=== PATIENT | male | born 1995 | race Caucasian/White ===

== ENCOUNTER 2017-10-05 20:41 | Emergency (ER) | payer OTHER ==
[~2017-10-05] VITALS: Ht 182.9 cm; Wt 73.5 kg
[2017-10-05 20:46] VITALS: TEMP 37.2; Ht 182.9 cm; Wt 73.5 kg
[2017-10-05] MEDS ORDERED: LIDOCAINE/EPINEPH/TETRACAINE 1 EA SYR EXT STA (20:57)
--- NOTE | 2017-10-05 22:07 | DIAGNOSTIC IMAGING REPORT ---
HEAD WITHOUT CONTRAST (CT) CLINICAL HISTORY: 22 years-old Male presenting with head injury, cleated in left face/periorbital area. TECHNIQUE: Multidetector CT imaging of the head was performed without the use of intravenous contrast. IV contrast: None. A dose lowering technique was used consistent with the principles of ALARA (as low as reasonably achievable). COMPARISON: None. CT DOSE (mGy.cm): The estimated cumulative dose is 753.62. FINDINGS: Coiled Coil Inspector topogram: Unremarkable. Ventricles and sulci normal in size. Brain parenchyma normal in appearance with preserved castillo-white differentiation. No mass effect or midline shift. No hemorrhage or acute territorial infarct. No extra-axial fluid collection. Paranasal sinuses and mastoid air cells clear. Calvarium intact. Hyperdensity of the dural venous sinuses suggest dehydration. IMPRESSION: 1. No acute intracranial abnormality. Electronically signed by: Mateo Kauffman M.D. 10/05/2017 10:06 PM Dictated Date/Time: 10/05/2017 10:02 PM
--- NOTE | 2017-10-05 22:28 | DIAGNOSTIC IMAGING REPORT ---
FACIAL BONES-MXILLOFAC WITHOUT CLINICAL HISTORY: 22 years-old Male presenting with head injury, cleated in left face/periorbital area. TECHNIQUE: Multidetector CT of the face was performed without the use of intravenous contrast. IV contrast: None. A dose lowering technique was used consistent with the principles of ALARA (as low as reasonably achievable). COMPARISON: None. CT DOSE (mGy.cm): The estimated cumulative dose is 753.62 mGy.cm. FINDINGS: Germination Testing Manager topogram: Unremarkable. Left premaxillary superficial soft tissue contusion and swelling with overlying bandage. Left globe intact. No intraorbital hematoma. Minimal polypoid mucosal thickening in the left maxillary sinus. No acute osseous injury of the face. Mandible intact. Temporomandibular joints intact. Upper cervical spine intact. IMPRESSION: Superficial soft tissue contusion in the left premaxillary region. No acute osseous injury of the face. Electronically signed by: Mateo Kauffman M.D. 10/05/2017 10:27 PM Dictated Date/Time: 10/05/2017 10:24 PM
--- NOTE | 2017-10-05 22:41 | EMERGENCY ROOM VISIT NOTE ---
History First contact with patient: 20:51 Chief Complaint: LACERATION/CUT (SUT/DERMABOND) Stated Complaint: CUT ON FACE, POSSIBLE CONCUSSION Nursing Triage Summary: laceration to the left check History of Present Illness The patient is a 22 year old male who presents to the Emergency Room with complaints of a laceration to the left cheek. The patient states that he was playing flag football and was cleated in the face. He reports a laceration to the left cheek. He states there was no loss of consciousness. He denies headache, dizziness, nausea or vomiting. He denies any blurred vision or slurred speech. He rates his overall discomfort a 5/10. His tetanus is up-to- date. Review of Systems A complete 10 point review of systems was reviewed with the patient with pertinent positives and negatives as per history of present illness. All else were negative. Social History Smoking Status: Never Smoker Current/Historical Medications No Active Prescriptions or Reported Meds Physical Exam Vital Signs Date Time Temp Pulse Resp B/P (MAP) Pulse Ox O2 Delivery O2 Flow Rate FiO2 10/05/17 22:53 68 14 128/76 98 10/05/17 20:46 37.2 64 20 135/94 97 Room Air Physical Exam VITALS: Vitals are noted on the nurse's note and reviewed by myself. Vital signs stable. GENERAL: This is a 22-year-old male, in no acute distress, nondiaphoretic, well- developed well-nourished. SKIN: There is a 3 cm laceration to the left zygomatic area. There is no active bleeding. FACE: There is moderate left periorbital edema. HEAD: Normocephalic atraumatic. EARS: External auditory canals clear, tympanic membranes pearly castillo without erythema or effusion bilaterally. No hemotympanum. EYES: Pupils equal round and reactive to light and accommodation. No subconjunctival hemorrhage. Extraocular movements intact. NOSE: No deformity. MOUTH: Mucous membranes moist. NECK: Supple without nuchal rigidity. Cervical spine is nontender. HEART: Regular rate and rhythm without murmurs gallops or rubs. LUNGS: Clear to auscultation bilaterally without wheezes, rales or rhonchi. MUSCULOSKELETAL: Strength 5/5 throughout. NEURO: Patient was alert and oriented to person place and time. No focal neurological deficits. Medical Decision & Procedures ER Provider Diagnostic Interpretation: HEAD WITHOUT CONTRAST (CT) FINDINGS: Gynecological Assistant topogram: Unremarkable. Ventricles and sulci normal in size. Brain parenchyma normal in appearance with preserved castillo-white differentiation. No mass effect or midline shift. No hemorrhage or acute territorial infarct. No extra-axial fluid collection. Paranasal sinuses and mastoid air cells clear. Calvarium intact. Hyperdensity of the dural venous sinuses suggest dehydration. IMPRESSION: 1. No acute intracranial abnormality. FACIAL BONES-MXILLOFAC WITHOUT FINDINGS: Gynecological Assistant topogram: Unremarkable. Left premaxillary superficial soft tissue contusion and swelling with overlying bandage. Left globe intact. No intraorbital hematoma. Minimal polypoid mucosal thickening in the left maxillary sinus. No acute osseous injury of the face. Mandible intact. Temporomandibular joints intact. Upper cervical spine intact. IMPRESSION: Superficial soft tissue contusion in the left premaxillary region. No acute osseous injury of the face. Medications Administered Medications (Trade) Dose Ordered Sig/Efrain Route Start Time Stop Time Status Last Admin Dose Admin Tetracaine/ Epinephrine/ Lidocaine (L.e.t. Gel 4%/ 1:100/0.5%) 1 ea UD STAT EXT 10/05/17 20:57 10/05/17 20:59 DC 10/05/17 21:16 1 EA Procedure Verbal consent was obtained to perform the procedure. LET gel was applied to the wound and left in place for greater than 30 minutes. Using sterile technique the wound was cleaned with Betadine. The area was sterilely draped. Once the patient was anesthetized, the wound was copiously irrigated under pressure with sterile saline. The laceration was repaired using 7 simple interrupted 6-0 nylon sutures with the wound edges being well approximated. The patient tolerated the procedure well. Hemostasis was achieved. The area was cleaned with sterile saline and dressed with bacitracin ointment and bandage. Medical Decision Differential diagnosis includes facial bone fracture, orbital floor fracture, intracranial hemorrhage, skull fracture, concussion, among others. The patient was evaluated as above. There is a significant amount of periorbital edema and for this reason CT of the head and facial bones was ordered. These were read by radiology with no acute findings. Laceration repair was performed as noted above. Patient tolerated the procedure well. Conservative measures and suture care instructions were discussed with the patient. He verbalized understanding of my assessment and treatment plan and was discharged home in good condition. Head Trauma GCS Score: 15 Medication Reconcilliation Current Medication List: was personally reviewed by me Blood Pressure Screening Patient's blood pressure: Normal blood pressure Impression Primary Impression: Facial laceration Additional Impression: Closed head injury Departure Information Dispostion Home / Self-Care Condition GOOD Prescriptions No Active Prescriptions or Reported Meds Referrals [facility] (PCP) Patient Instructions My [facility] Additional Instructions You have received 7 sutures on your face. These sutures are NOT dissolvable and WILL need to be removed by a health care provider in 5-7 days. You can return to the Emergency Department or contact your Primary Care Provider to have the sutures removed. Proper wound care is essential for adequate wound healing and infection prevention. You can shower and clean the wound with soap and water. Do not scour over the wound, pat dry with a towel. Do not submerse the wound (i.e. bathe or dish wash) until the sutures have been removed. You can use an antibiotic ointment with a dressing over the wound for the next 3-4 days. After this time you may leave the wound dry and open to the air. If crust develops over the wound you can use a Q-tip to apply a 1:1 peroxide:water solution to clean the wound. Look for signs of infection of the wound including: increased pain, swelling, foul discharge, streaking, or increased temperature. If any of these are noticed you should return to the Emergency Department for further assessment and treatment. As with any laceration you may have received nerve damage to the surrounding tissues. This damage may or may not be permanent. You should keep the area covered with sunscreen for the first 6 months to 1 year when at risk for exposure to help minimize scarring. You can also use scar reducing creams or Vitamin E oil to help minimize scarring. For pain control, you can use the following [id number] medicines (if >12 yo): - Regular strength (325mg/tab) Tylenol (acetaminophen) 2 tabs every 4-6 hours as needed. Do not exceed 12 tablets in a 24 hour period. Avoid taking more than 4 grams (4000 mg) of Tylenol per day. This includes any other sources of acetaminophen you may take on a regular basis. - Regular strength (200 mg/tab) Advil (ibuprofen) 1-2 tabs every 4-6 hours as needed. Do not exceed a dose of 3200 mg per day. Return to the emergency department if your symptoms worsen despite treatment course outlined above. Problem Qualifiers Primary Impression: Facial laceration Encounter type: initial encounter Qualified Codes: S01.81XA - Laceration without foreign body of other part of head, initial encounter Additional Impression: Closed head injury Encounter type: initial encounter Qualified Codes: S09.90XA - Unspecified injury of head, initial encounter
[2017-10-05 22:53] VITALS: BP 128/76; PULSE 68; O2SAT 98
== END 2017-10-05 22:45 | disposition home or self-care (01) ==
LOC: C.EDB 20:46 → C.EDD 22:45
DX: S01.412A Laceration without foreign body of left cheek and temporomandibular area, initial encounter (principal); S09.90XA Unspecified injury of head, initial encounter; W51.XXXA Accidental striking against or bumped into by another person, initial encounter; Y93.62 Activity, american flag or touch football